=== PATIENT | female | born 1995 | race Caucasian/White ===

== ENCOUNTER 2017-03-26 11:44 | Emergency (ER) | payer BC ==
[2017-03-26] MEDS ORDERED: NS 1000 ML 1,000 ML ONE (11:51)
[2017-03-26] MEDS ORDERED: MAGNESIUM SULFATE 40 GM IV 40 GM/1,000 ML BAG IV ONE (11:51)
[2017-03-26] MEDS ORDERED: NS 1000 ML 1,000 ML IV ONE (11:59)
[2017-03-26 12:24] LABS: BASOPHILS # (AUTO) 0.1 X10^3/uL (0.0-0.1); BASOPHILS % (AUTO) 0.6 % (0.2-1.0); EOSINOPHILS # (AUTO) 0.1 x10^3/uL (0.0-0.2); EOSINOPHILS % (AUTO) 1.1 % (0.9-2.9); HEMATOCRIT 37.3 % (36.0-47.0); HEMOGLOBIN 13.2 g/dL (12.0-16.0); LYMPHOCYTES % (AUTO) 18.9 % (21.0-51.0); MEAN CORPUSCULAR HEMOGLOBIN 32.1 pg (27.0-34.0); MEAN CORPUSCULAR HGB CONC 35.3 g/dL (33.0-35.0); MEAN PLATELET VOLUME 8.7 fL (7.4-11.0); MONOCYTES # (AUTO) 0.6 x10^3/uL (0.3-0.8); MONOCYTES % (AUTO) 5.5 % (0.0-13.0); NEUTROPHILS # (AUTO) 7.7 x10^3/uL (2.2-4.8); NEUTROPHILS % (AUTO) 73.9 % (42.0-75.0); PLATELET COUNT 185 X10^3/uL (150.0-450.0); RED CELL DISTRIBUTION WIDTH 13.5 % (11.6-16.5); WHITE BLOOD COUNT 10.4 X10^3/uL (3.6-10.0)
[2017-03-26 12:37] VITALS: BMI 33.2
[2017-03-26 12:42] LABS: ALANINE AMINOTRANSFERASE 17 Units/L (12-78); ALBUMIN 2.8 g/dL (3.4-5.0); ALKALINE PHOSPHATASE 111 Units/L (46-116); ASPARTATE AMINO TRANSFERASE 17 Units/L (15-37); BLOOD UREA NITROGEN 4 mg/dL (7-18); CALCIUM 9.2 mg/dL (8.5-10.1); CARBON DIOXIDE 27.3 mmol/L (21-32); CHLORIDE 105 mmol/L (98-107); COR CA(FOR HYPOALB) 10.2 mg/dL (8.5-10.1); CREATININE 0.62 mg/dL (0.55-1.02); SODIUM 139 mmol/L (136-145); TOTAL PROTEIN 6.7 g/dL (6.4-8.2); eGFR BLACK RACES > 60 (>60); eGFR NON BLACK RACES > 60 (>60)
[2017-03-26 13:21] LABS: BILIRUBIN,URINE NEGATIVE (NEGATIVE); BLOOD/HEMOGLOBIN,URINE 1+ (NEGATIVE); GLUCOSE, URINE NEGATIVE (NEGATIVE); KETONES,URINE NEGATIVE (NEGATIVE); LEUKOCYTE ESTERASE ,URINE 3+ (NEGATIVE); NITRITES,URINE NEGATIVE (NEGATIVE); PROTEIN,URINE NEGATIVE (NEGATIVE); UROBILINOGEN,URINE NORMAL (NORMAL)
[2017-03-26] MEDS ORDERED: BRETHINE INJ 1 MG VIAL SC ONE ×2 (13:30→13:34)
[2017-03-26 13:31] LABS: AMORPHOUS SEDIMENT,UR TRACE /HPF (NEGATIVE); APPEARANCE,URINE SLIGHTLY HAZY (CLEAR); BACTERIA,URINE 2+ /HPF (NEGATIVE); COLOR,URINE PALE YELLOW (YELLOW); SQUAMOUS EPITHELIAL CELL,UR FEW /HPF (NEGATIVE)
[2017-03-26] MEDS ORDERED: MACROBID CAP 100 MG EXT REL PO ONE ×2 (13:54→13:55)
[2017-03-26 15:15] VITALS: BP 117/66
== END 2017-03-26 15:10 | disposition home or self-care (01) ==
LOC: ER 12:06
DX: O60.03 Preterm labor without delivery, third trimester (principal); Z3A.00 Weeks of gestation of pregnancy not specified
CPT/HCPCS: 36415; 80053; 81001; 85025; 87086; 96365; 96372; 99284; A4222; J3105; J3475

== ENCOUNTER 2017-04-20 07:20 | Inpatient (IN) | payer BC ==
[~2017-04-20 07:20] MED LIST: NS IRRIGATION 1000 ML 1,000 ML IR ONE
[2017-04-20 07:40] VITALS: BMI 30.7
[2017-04-20] MEDS ORDERED: NS 1000 ML 1,000 ML ONE (07:40)
[2017-04-20 07:51] LABS: BILIRUBIN,URINE NEGATIVE (NEGATIVE); BLOOD/HEMOGLOBIN,URINE 1+ (NEGATIVE); GLUCOSE, URINE NEGATIVE (NEGATIVE); KETONES,URINE NEGATIVE (NEGATIVE); LEUKOCYTE ESTERASE ,URINE 3+ (NEGATIVE); NITRITES,URINE NEGATIVE (NEGATIVE); PROTEIN,URINE NEGATIVE (NEGATIVE); UROBILINOGEN,URINE NORMAL (NORMAL)
[2017-04-20] MEDS ORDERED: NS 1000 ML 1,000 ML IV ONE (07:53)
[2017-04-20 08:05] LABS: APPEARANCE,URINE HAZY (CLEAR); BACTERIA,URINE TRACE /HPF (NEGATIVE); COLOR,URINE YELLOW (YELLOW); SQUAMOUS EPITHELIAL CELL,UR MANY /HPF (NEGATIVE)
[2017-04-20 10:38] LABS: BASOPHILS % (AUTO) 0.3 % (0.2-1.0); EOSINOPHILS # (AUTO) 0.1 x10^3/uL (0.0-0.2); EOSINOPHILS % (AUTO) 0.6 % (0.9-2.9); HEMATOCRIT 39.7 % (36.0-47.0); LYMPHOCYTES % (AUTO) 15.9 % (21.0-51.0); MEAN CORPUSCULAR HEMOGLOBIN 32.2 pg (27.0-34.0); MEAN CORPUSCULAR HGB CONC 35.2 g/dL (33.0-35.0); MEAN CORPUSCULAR VOLUME 91.5 fL (80.0-100.0); MEAN PLATELET VOLUME 9.5 fL (7.4-11.0); MONOCYTES # (AUTO) 0.5 x10^3/uL (0.3-0.8); MONOCYTES % (AUTO) 4.2 % (0.0-13.0); NEUTROPHILS # (AUTO) 10.2 x10^3/uL (2.2-4.8); PLATELET COUNT 205 X10^3/uL (150.0-450.0); RED BLOOD COUNT 4.34 X10^6/uL (3.5-5.4); RED CELL DISTRIBUTION WIDTH 13.3 % (11.6-16.5); WHITE BLOOD COUNT 12.9 X10^3/uL (3.6-10.0)
[2017-04-20] MEDS: D5 1/2 NS 1000 ML 1,000 ML IV SCH ×2 (11:00→19:26)
[2017-04-20] MEDS ORDERED: D5LR 1L W PITOCIN 10 UNITS/L 10 UNITS/1,000 ML BAG IV ONE ×2 (11:15→23:07)
[2017-04-20] MEDS ORDERED: PITOCIN ONE (11:15)
[2017-04-20] MEDS ORDERED: NAROPIN EPIDURAL 0.2% + FENTANYL 90MCG 60 ML EPI ONE (11:15)
[2017-04-20] MEDS ORDERED: LR 1000 ML IV 1,000 ML IV ONE ×3 (11:15→23:26)
[2017-04-20] MEDS ORDERED: D5 1/2 NS 1000 ML 1,000 ML IV ONE ×2 (11:15→19:02)
[2017-04-20] MEDS ORDERED: DILAUDID INJ IVP PRN (11:28)
[2017-04-20] MEDS ORDERED: NUBAIN INJ 200 MG VIAL MULTIDOSE IVP PRN (11:28)
[2017-04-20] MEDS ORDERED: PITOCIN IVP ONE (11:28)
[2017-04-20] MEDS ORDERED: REGLAN INJ 10 MG VIAL IVP PRN (11:28)
[2017-04-20] MEDS ORDERED: PHENERGAN INJ 25 MG IV PRN (11:28)
[2017-04-20] MEDS ORDERED: D5LR 1L W PITOCIN 10 UNITS/L 10 UNITS/1,000 ML BAG IV PRN (11:28)
--- NOTE | 2017-04-20 12:00 | DR.OB ---
OB Quick Note - Assessment/Plan Assessment/Plan: L&D 04/20/17 at 11:35am S-No complaint except pain with CTX. O-Afebrile, VSS HAP=221 with good LTV, +accel, no decel. CTX=q 1 1/2-2 min., moderate by palpation. CVX=3cm/50%/-1 A-IUP at 37 5/7 weeks in active labor Rh- GERD P-Begin pitocin augmentation F/U labs Anticipate
[2017-04-20] MEDS ORDERED: D5 1/2 NS 1L W PITOCIN 20 UNITS/L 20 UNITS/1,000 ML BAG IV ONE (12:52)
[2017-04-20] MEDS ORDERED: NAROPIN EPIDURAL 0.2% + FENTANYL 90MCG EPI SCH (13:00)
[2017-04-20] MEDS ORDERED: FENTANYL INJ 100 mcg ONE (13:14)
[2017-04-20] MEDS ORDERED: EPHEDRINE SULFATE INJ ONE (15:23)
[2017-04-20] MEDS ORDERED: EPHEDRINE SULFATE INJ IV ONE (15:23)
[2017-04-20 16:06] LABS: ALANINE AMINOTRANSFERASE 19 Units/L (12-78); ALBUMIN 2.7 g/dL (3.4-5.0); ALKALINE PHOSPHATASE 164 Units/L (46-116); ASPARTATE AMINO TRANSFERASE 18 Units/L (15-37); BLOOD UREA NITROGEN 4 mg/dL (7-18); CARBON DIOXIDE 21.8 mmol/L (21-32); CHLORIDE 105 mmol/L (98-107); CREATININE 0.65 mg/dL (0.55-1.02); SODIUM 138 mmol/L (136-145); TOTAL PROTEIN 6.8 g/dL (6.4-8.2); eGFR BLACK RACES > 60 (>60); eGFR NON BLACK RACES > 60 (>60)
--- NOTE | 2017-04-20 16:47 | DR.OB ---
OB Quick Note - Assessment/Plan Assessment/Plan: L&D 04/20/17 at 4:38pm Pitocin=14mu/min. S-No complaint. O-Afebrile,VSS NKO=303 with good LTV, +accel, no decel. CTX=q 1 1/2 to 3 min., about 40-50mmHg CVX=5cm/75%/-1 A-IUP at 37 5/7 weeks in active labor Rh- GERD P-Cont. pitocin induction Anticipate
[2017-04-20] MEDS ORDERED: REGLAN INJ 10 MG VIAL ONE (17:22)
[2017-04-20] MEDS ORDERED: MARCAINE 0.25% INJ ONE (19:53)
--- NOTE | 2017-04-20 19:55 | DR.OB ---
OB Quick Note - Assessment/Plan Assessment/Plan: L&D 04/20/17 at 7:50pm Pitocin=22mu/min. S-No complaint. O-Afebrile,VSS XYR=550 with good LTV, +accel, no decel. CTX=q 1 1/2 to 2 1/2 min., about 45-65mmHg CVX=7cm/100%/0 A-IUP at 37 5/7 weeks in labor Rh- GERD P-Cont. pitocin induction Anticipate
[2017-04-20] MEDS ORDERED: NS 50 ML IV + SPIKE MINIBAG* 50 ML IV ONE (23:26)
[2017-04-20] MEDS ORDERED: ANCEF VIAL 1 GM ONE (23:26)
[2017-04-20] MEDS ORDERED: XYLOCAINE 2% and EPINEPHRINE 1:100,000 ONE (23:35)
--- NOTE | 2017-04-20 23:47 | DR.OB ---
OB Quick Note - Assessment/Plan Assessment/Plan: L&D 04/20/17 at 11:40pm Pitocin=20mu/min. S-No complaint except more pain with CTX. O-Afebrile,VSS WUC=902 with good LTV, +accel, no decel. CTX=q 1 1/2 to 2 1/2 min., about 45-65mmHg CVX=7-8cm/100%/-1 (no change) A-IUP at 37 5/7 weeks in labor Rh- GERD P-To C/S for failure to dilate
[2017-04-20] MEDS ORDERED: DURAMORPH ONE (23:54)
[2017-04-21] MEDS ORDERED: LR 1000 ML IV 1,000 ML IV ONE (00:15)
[2017-04-21] MEDS ORDERED: KETALAR ONE (00:51)
[2017-04-21] MEDS ORDERED: REGLAN INJ 10 MG VIAL IVP PRN ×2 (01:15→01:18)
[2017-04-21] MEDS ORDERED: BENADRYL INJ 50 MG VIAL IVP PRN ×2 (01:15→01:18)
[2017-04-21] MEDS ORDERED: PHENERGAN INJ 25 MG IVP PRN (01:15)
[2017-04-21] MEDS ORDERED: ZOFRAN INJ 4 MG VIAL IVP PRN ×2 (01:15→01:18)
[2017-04-21] MEDS ORDERED: MYLICON TAB 80 MG CHEW PO PRN (01:18)
[2017-04-21] MEDS ORDERED: ADACEL TDaP IM ONE (01:18)
[2017-04-21] MEDS ORDERED: TORADOL 30 MG VIAL IVP PRN (01:18)
[2017-04-21] MEDS ORDERED: HYPERRHO S/D (or RHOGAM) IM PRN (01:18)
[2017-04-21] MEDS ORDERED: PHENERGAN INJ 25 MG IV PRN (01:18)
[2017-04-21] MEDS ORDERED: NARCAN INJ IVP PRN (01:18)
[2017-04-21] MEDS ORDERED: D5 1/2 NS 1000 ML 1,000 ML with PITOCIN 20 UNITS IV SCH ×2 (02:00)
[2017-04-21 06:45] LABS: HEMATOCRIT 33.9 % (36.0-47.0)
[2017-04-21 06:51] LABS: HEMOGLOBIN 11.7 g/dL (12.0-16.0)
[2017-04-21] MEDS ORDERED: PERCOCET TAB 5/325 MG PO PRN (07:22)
[2017-04-21] MEDS ORDERED: ZOFRAN INJ 4 MG VIAL ONE (13:45)
[2017-04-21] MEDS ORDERED: VERSED ONE (13:45)
[2017-04-21] MEDS ORDERED: DIPRIVAN VIAL ONE (13:45)
[2017-04-21] MEDS ORDERED: XYLOCAINE 2 % (PLAIN) ONE (13:45)
[2017-04-21] MEDS: COLACE CAP 100 MG PO SCH ×2 (13:47→20:51)
[2017-04-21] MEDS: ZANTAC PO SCH ×2 (13:47→20:51)
[2017-04-21] MEDS: PRENATAL PLUS PO SCH (13:48)
[2017-04-21] MEDS: BACTROBAN OINT TOP SCH ×2 (14:33→22:36)
[2017-04-21] MEDS: MOTRIN TAB 800 MG PO PRN (18:18)
[2017-04-22] MEDS: BACTROBAN OINT TOP SCH (05:10)
[2017-04-22] MEDS ORDERED: DEPO-PROVERA CONTRACEPTIVE INJ IM ONE (06:27)
[2017-04-22] MEDS: COLACE CAP 100 MG PO SCH (08:46)
[2017-04-22] MEDS: ZANTAC PO SCH (08:46)
[2017-04-22] MEDS: PRENATAL PLUS PO SCH (08:46)
[2017-04-22] MEDS ORDERED: ADACEL TDaP IM ONE (08:47)
[2017-04-22 10:08] VITALS: BP 101/66
[2017-04-22] MEDS: MOTRIN TAB 800 MG PO PRN (11:45)
== END 2017-04-22 13:00 | disposition home or self-care (01) | DRG 781 ==
LOC: ER 07:24 → LD 10:54 → ER 10:54 → MED/SURG 04-21 01:38
PROVIDERS: ADMIT Specialist; ATTEND Specialist
PROC: 10D00Z1 Extraction of Products of Conception, Low, Open Approach (ICD-10-PCS; principal; 2017-04-20 23:45)
PROC: 3E0234Z Introduction of Serum, Toxoid and Vaccine into Muscle, Percutaneous Approach (ICD-10-PCS; 2017-04-21)
PROC: 3E0334Z Introduction of Serum, Toxoid and Vaccine into Peripheral Vein, Percutaneous Approach (ICD-10-PCS; 2017-04-21)
DX: O36.0920 Maternal care for other rhesus isoimmunization, second trimester, not applicable or unspecified (principal); O99.613 Diseases of the digestive system complicating pregnancy, third trimester; O62.0 Primary inadequate contractions; Z23 Encounter for immunization
CPT/HCPCS: 36415; 80053; 81001; 85014; 85018; 85025; 85461; 86592; 86850; 86900; 86901; 94640; 96365; 99284; A4216; A4222; S0020; S0197; J0690; J1050; J1885; J2001; J2250; J2405; J2550; J2590; J2765; J2790; J3010; J3490; J7042; J7120

== ENCOUNTER 2020-10-07 13:54 | Inpatient (IN) ==
[2020-10-07 14:26] VITALS: BMI 32.5
[2020-10-07 14:27] LABS: BILIRUBIN,URINE NEGATIVE (NEGATIVE); BLOOD/HEMOGLOBIN,URINE 1+ (NEGATIVE); GLUCOSE, URINE NEGATIVE (NEGATIVE); KETONES,URINE 4+ (NEGATIVE); LEUKOCYTE ESTERASE ,URINE 2+ (NEGATIVE); NITRITES,URINE NEGATIVE (NEGATIVE); PH,URINE 6.5 (5.0 - 8.0); PROTEIN,URINE NEGATIVE (NEGATIVE); UROBILINOGEN,URINE 1+ (NORMAL)
[2020-10-07 14:36] LABS: APPEARANCE,URINE CLEAR (CLEAR); COLOR,URINE YELLOW (YELLOW)
[2020-10-07 14:37] LABS: BACTERIA,URINE 2+ /HPF (NEGATIVE); MUCUS,URINE MODERATE /HPF (NEGATIVE); SQUAMOUS EPITHELIAL CELL,UR FEW /HPF (NEGATIVE)
[2020-10-07 14:43] LABS: AMNISURE ROM TEST NO MEMBRANES RUPTURE (NO RUPTURE)
[2020-10-07] MEDS ORDERED: ANCEF 1 GRAM IV PREMIX* 1 G/50 ML BAG IV ONE (15:10)
[2020-10-07] MEDS ORDERED: LR 1000 ML IV 1,000 ML IV ONE (15:10)
[2020-10-07 15:32] LABS: BASOPHILS % (AUTO) 0.3 % (0.2-1.0); EOSINOPHILS # (AUTO) 0.2 x10^3/uL (0.0-0.2); EOSINOPHILS % (AUTO) 1.7 % (0.9-2.9); HEMATOCRIT 40.3 % (36.0-47.0); HEMOGLOBIN 13.8 g/dL (12.0-16.0); LYMPHOCYTES # (AUTO) 2.1 X10^3/uL (1.3-2.9); LYMPHOCYTES % (AUTO) 15.9 % (21.0-51.0); MEAN CORPUSCULAR HEMOGLOBIN 31.7 pg (27.0-34.0); MEAN CORPUSCULAR HGB CONC 34.3 g/dL (33.0-35.0); MEAN CORPUSCULAR VOLUME 92.4 fL (80.0-100.0); MEAN PLATELET VOLUME 9.1 fL (7.4-11.0); MONOCYTES # (AUTO) 0.6 x10^3/uL (0.3-0.8); MONOCYTES % (AUTO) 4.4 % (0.0-13.0); NEUTROPHILS # (AUTO) 10.1 x10^3/uL (2.2-4.8); NEUTROPHILS % (AUTO) 77.7 % (42.0-75.0); PLATELET COUNT 159 X10^3/uL (150.0-450.0); RED BLOOD COUNT 4.36 X10^6/uL (3.5-5.4); RED CELL DISTRIBUTION WIDTH 13.6 % (11.6-16.5)
[2020-10-07] MEDS ORDERED: DILAUDID INJ ONE (15:43)
[2020-10-07] MEDS ORDERED: PITOCIN ONE ×2 (15:43→16:51)
[2020-10-07] MEDS ORDERED: NS 1000 ML 2,000 ML ONE (15:43)
[2020-10-07 15:44] LABS: ALANINE AMINOTRANSFERASE 15 Units/L (12-78); ALBUMIN 2.8 g/dL (3.4-5.0); ALKALINE PHOSPHATASE 146 Units/L (46-116); ASPARTATE AMINO TRANSFERASE 18 Units/L (15-37); BLOOD UREA NITROGEN 8 mg/dL (7-18); CALCIUM 9.2 mg/dL (8.5-10.1); CARBON DIOXIDE 23.1 mmol/L (21-32); CHLORIDE 102 mmol/L (98-107); COR CA(FOR HYPOALB) 10.2 mg/dL (8.5-10.1); SODIUM 136 mmol/L (136-145); TOTAL PROTEIN 7.1 g/dL (6.4-8.2); eGFR NON BLACK RACES > 60 (>60)
[2020-10-07] MEDS ORDERED: FENTANYL INJ 100 mcg ONE (16:30)
[2020-10-07] MEDS ORDERED: D5 1/2 NS 1L W PITOCIN 20 UNITS/L 20 UNITS/1,000 ML BAG IV ONE (16:55)
[2020-10-07] MEDS ORDERED: REGLAN INJ 10 MG VIAL IVP PRN ×2 (17:10→17:19)
[2020-10-07] MEDS ORDERED: PHENERGAN INJ 25 MG IM PRN (17:10)
[2020-10-07] MEDS ORDERED: BENADRYL INJ 50 MG VIAL IVP PRN ×2 (17:10→17:19)
[2020-10-07] MEDS ORDERED: DILAUDID INJ IVP PRN (17:10)
[2020-10-07] MEDS ORDERED: ZOFRAN INJ 4 MG VIAL IVP PRN ×2 (17:10→17:19)
[2020-10-07] MEDS ORDERED: NARCAN INJ IVP PRN (17:19)
[2020-10-07] MEDS ORDERED: MYLICON TAB 80 MG CHEW PO PRN (17:19)
[2020-10-07] MEDS ORDERED: ADACEL or BOOSTRIX TDaP VACCINE IM ONE (17:19)
[2020-10-07] MEDS ORDERED: TORADOL 30 MG VIAL IVP PRN (17:19)
[2020-10-07] MEDS ORDERED: HYPERRHO S/D (or RHOGAM) IM PRN (17:19)
[2020-10-07] MEDS ORDERED: PERCOCET TAB 5/325 MG PO PRN (17:19)
[2020-10-07] MEDS ORDERED: ZOFRAN INJ 4 MG VIAL ONE (17:20)
[2020-10-07] MEDS ORDERED: D5 1/2 NS 1000 ML 1,000 ML with PITOCIN 20 UNITS IV SCH ×2 (18:00)
[2020-10-08 05:17] LABS: HEMATOCRIT 36.7 % (36.0-47.0); HEMOGLOBIN 12.3 g/dL (12.0-16.0)
[2020-10-08] MEDS ORDERED: PERCOCET TAB 5/325 MG PO PRN (07:41)
[2020-10-08] MEDS: PRENATAL PLUS PO SCH (08:42)
[2020-10-08] MEDS: MOTRIN TAB 800 MG PO PRN ×2 (08:42→20:14)
[2020-10-08] MEDS: PROTONIX TAB 40 MG PO SCH (08:42)
[2020-10-08] MEDS: COLACE CAP 100 MG PO SCH ×2 (08:42→20:14)
[2020-10-08] MEDS: BACTROBAN TOPICAL OINT TOP SCH ×2 (14:30→22:23)
[2020-10-09] MEDS: MOTRIN TAB 800 MG PO PRN (04:45)
[2020-10-09] MEDS: BACTROBAN TOPICAL OINT TOP SCH (07:25)
[2020-10-09] MEDS ORDERED: DEPO-PROVERA CONTRACEPTIVE INJ IM ONE (07:41)
[2020-10-09 08:26] VITALS: BP 116/72
[2020-10-09] MEDS: COLACE CAP 100 MG PO SCH (09:22)
[2020-10-09] MEDS: PRENATAL PLUS PO SCH (09:22)
[2020-10-09] MEDS: PROTONIX TAB 40 MG PO SCH (09:22)
== END 2020-10-09 10:00 | disposition home or self-care (01) | DRG 787 ==
LOC: ER 14:01 → LD 15:10 → MED/SURG 17:08
PROVIDERS: ADMIT Specialist; ATTEND Specialist
DX: O36.0930 Maternal care for other rhesus isoimmunization, third trimester, not applicable or unspecified; O99.613 Diseases of the digestive system complicating pregnancy, third trimester; Z20.822 Contact with and (suspected) exposure to COVID-19; N85.8 Other specified noninflammatory disorders of uterus; Z3A.38 38 weeks gestation of pregnancy; O34.211 Maternal care for low transverse scar from previous cesarean delivery; Z37.0 Single live birth